=== PATIENT | female | born 1990 | race Caucasian/White ===

== ENCOUNTER → 2016-12-15 | Outpatient (CLI) | payer BC ==
[~2016-12-15] MED LIST: LBT100 PO; PRENTAB26 PO
[2016-12-15 16:49] LABS: HEMATOCRIT 30.6 % (37-47)
[2016-12-15 17:39] LABS: URINE APPEARANCE CLEAR (CLEAR); URINE BILIRUBIN NEG (NEG); URINE COLOR YELLOW; URINE EPITHELIAL CELL AUTO 20-30 /lpf (0-5); URINE NITRITE NEG (NEG); URINE SPECIFIC GRAVITY 1.007 (1.000-1.030); UROBILINOGEN NEG (NEG)
[2016-12-15 17:49] LABS: MANUAL MICROSCOPIC REQUIRED? NO; REVIEW REQ? NO
== END | disposition home or self-care (01) ==
LOC: C.LAB1850 15:42
PROVIDERS: ATTEND Obstetrics & Gynecology
DX: Z34.03 Encounter for supervision of normal first pregnancy, third trimester (principal)

== ENCOUNTER → 2017-02-09 | Outpatient (CLI) | payer BC | END | disposition home or self-care (01) | LOC: C.LABSPEC 17:43 | PROVIDERS: ATTEND Obstetrics & Gynecology | DX: Z34.03 Encounter for supervision of normal first pregnancy, third trimester (principal) ==

== ENCOUNTER 2017-02-17 17:07 | Inpatient (IN) | payer BC ==
[~2017-02-17] VITALS: Ht 167.6 cm; Wt 74.5 kg
[~2017-02-17 17:07] MED LIST changes: -LBT100 PO
[2017-02-17 17:44] VITALS: Ht 167.6 cm; Wt 74.5 kg
[2017-02-17 18:51] LABS: BASO % 0.2 %; BASO ABS # 0.02 K/uL (0-0.2); EOS % 0.4 %; HEMATOCRIT 33.9 % (37-47); IG% 0.9 %; LYMPH % 14.3 %; LYMPH ABS # 1.61 K/uL (1.2-3.4); MEAN CELL VOLUME 87.4 fL (80-100); MEAN CORPUSCULAR HEMOGLOBIN 29.6 pg (25-34); MEAN PLATELET VOLUME 10.2 fL (7.4-10.4); MONO % 7.8 %; NEUT % 76.4 %; PLATELET COUNT 253 K/uL (130-400); RED BLOOD COUNT 3.88 M/uL (4.2-5.4); WHITE BLOOD COUNT 11.25 K/uL (4.8-10.8)
[2017-02-17 19:00] LABS: INR 0.9 (0.9-1.1); PROTHROMBIN TIME (PATIENT) 9.2 SECONDS (9.0-12.0)
[2017-02-17 19:02] LABS: COMPLETE YES; MEAN CORPUSCULAR HGB CONC 33.9 g/dl (32-36)
[2017-02-17 19:33] LABS: CREATININE 0.7 mg/dl (0.60-1.20); URIC ACID 5.8 mg/dl (2.6-7.2)
[2017-02-17 20:05] LABS: URINE PROTIEN/CREAT RATIO 0.1 (0-0.2); URINE TOTAL PROTEIN 5.5 mg/dl (0-11.9)
[2017-02-17] MEDS ORDERED: LACTATED RINGER'S 1000ML 1,000 ML IV PRN (20:52)
[2017-02-17] MEDS ORDERED: PENICILLIN G POTASSIUM IV 6 MU in DEXTROSE 5% 250ML 250 ML IV ONE (21:00)
[2017-02-17] MEDS ORDERED: IV FLUIDS COMPLETED PRN (21:15)
[2017-02-17] MEDS: LACTATED RINGER'S 1000ML 1,000 ML IV SCH (21:22)
[2017-02-18] MEDS: PENICILLIN G POTASSIUM IV 3 MU in DEXTROSE 5% 100ML 100 ML IV PRN ×4 (01:41→14:16)
[2017-02-18] MEDS ORDERED: LACTATED RINGER'S 1000ML 500 ML IV PRN ×2 (05:18→13:21)
[2017-02-18] MEDS ORDERED: OXYTOCIN 30 UNITS/500ML NSS IV PRN ×2 (05:30→16:30)
[2017-02-18] MEDS: LACTATED RINGER'S 1000ML 1,000 ML IV SCH ×2 (11:25→13:03)
[2017-02-18] MEDS ORDERED: EpHEDrine SULFATE INJ 50 MG/ML AMP ONE (11:53)
[2017-02-18] MEDS ORDERED: BUPIVACAINE 0.25% 30 ML VIAL ONE (11:53)
[2017-02-18] MEDS ORDERED: FENTANYL CITRATE INJ 50 MCG/1 ML 2 ML VIAL ONE (11:54)
[2017-02-18] MEDS ORDERED: FENTANYL 2MCG/ML ROPIV 1.25MG/ML 100ML BAG EPI ONE (11:54)
[2017-02-18] MEDS ORDERED: NALOXONE HCL INJ 1 MG in SODIUM CHLORIDE 0.9% 1000ML 1,000 ML IV PRN (13:21)
[2017-02-18] MEDS ORDERED: EpHEDrine SULFATE INJ 50 MG/ML AMP IV PRN (13:30)
[2017-02-18] MEDS ORDERED: NALBUPHINE HCL INJ 10 MG/ML AMP IV PRN (13:30)
[2017-02-18] MEDS ORDERED: FENTANYL 2MCG/ML ROPIV 1.25MG/ML 100ML BAG EPI PRN (13:30)
[2017-02-18] MEDS ORDERED: NALOXONE HCL INJ 0.4 MG/1 ML VIAL/CARP IV PRN (13:30)
[2017-02-18] MEDS ORDERED: DiphenhydrAMINE HCL 50 MG/ML VIAL IV PRN (13:30)
[2017-02-18] MEDS ORDERED: BENZOCAINE 20% AER SPR 82.5 GM CAN EXT PRN (16:30)
[2017-02-18] MEDS ORDERED: HYDROCORTISONE ACETATE 25 MG SUPP PR PRN (16:30)
[2017-02-18] MEDS ORDERED: SUPERCREAM 0.870 % 15GM JAR EXT PRN (16:30)
[2017-02-18] MEDS ORDERED: ACETAMINOPHEN/CODEINE 300/30MG TAB PO PRN ×2 (16:30)
[2017-02-18] MEDS ORDERED: LANOLIN OINT EXT PRN ×2 (16:30)
--- NOTE | 2017-02-18 17:08 | DELIVERY SUMMARY ---
DATE OF OPERATION: 02/18/2017 SURGEON: Dr. Mccracken. PRE-DELIVERY DIAGNOSES: 1. 26-year-old -0-1-0 at 37 weeks 2 days. 2. Induction of labor secondary to gestational hypertension. 3. GDMA1. 4. Group B strep positive. 5. History of miscarriage. 6. Zika exposure with negative laboratory testing. POST-DELIVERY DIAGNOSES: Same plus third degree perineal laceration. PROCEDURE: Spontaneous vaginal delivery with repair of third degree perineal laceration. ESTIMATED BLOOD LOSS: 300 mL. FINDINGS: Viable male with Apgars 8 and 9. Weight pending. Please see nursing records. DESCRIPTION OF PROCEDURE: The patient progressed to complete with epidural anesthesia. She then began to push and spontaneously vaginally delivered a viable male from the left occiput anterior position. The head delivered followed by the anterior shoulder followed by the posterior shoulder followed by the body, no nuchal cord was noted. A spontaneous cry was heard. The cord was doubly clamped and cut and the baby was handed off to the waiting pediatrics team per maternal request. The placenta was then delivered spontaneously intact with a 3-vessel cord. Pitocin was given. The uterus became firm. The uterus, vagina and cervix were swept of all clots and debris. The cervix, vagina and perineum were inspected for lacerations and a third degree perineal laceration was noted. Rectal exam was performed to ensure no fourth degree tear. The anal sphincter muscle was not entirely lacerated, approximately 50% of the muscle was torn. Three [id number] sutures of 3-0 Chromic on an SH needle were used to reapproximate the muscle capsule of the anal sphincter. Then the second degree perineal laceration was repaired in standard fashion using 3-0 Vicryl. At the conclusion of the repair a rectal exam was performed to ensure no stitches in the rectum. Excellent hemostasis was observed. The patient and baby tolerated the delivery well and are recovering in the room. I attest to the content of the Intraoperative Record and any orders documented therein. Any exceptio ns are noted below.
--- NOTE | 2017-02-18 17:28 | Anesthesia Procedure Note ---
Anesthesia Epidural Removal Nt Date & Time Feb 18, 2017 at 17:28 Notes Mental Status: alert / awake / arousable, participated in evaluation Nausea / Vomiting: adequately controlled Pain: adequately controlled Airway Patency, RR, SpO2: stable & adequate BP & HR: stable & adequate Hydration State: stable & adequate Neuraxial Anesthesia: was administered, sensory block is resolving Anesthetic Complications: no major complications apparent, pt satisfied with anesthetic care Epidural: removed without complications, with tip intact
[2017-02-18 19:40] VITALS: BP 136/88; PULSE 79; TEMP 36.9
[2017-02-18] MEDS: DOCUSATE SODIUM 100 MG CAP PO SCH (20:20)
[2017-02-18] MEDS: IBUPROFEN 600 MG TAB PO PRN (20:52)
[2017-02-19] VITALS: BP 147/81; PULSE 74; TEMP 36.8
[2017-02-19] MEDS: IBUPROFEN 600 MG TAB PO PRN ×4 (00:24→20:22)
[2017-02-19 04:40] VITALS: BP 143/89; PULSE 75; TEMP 36.5
[2017-02-19 06:53] LABS: HEMATOCRIT 30.5 % (37-47)
[2017-02-19 07:45] VITALS: BP 143/98; PULSE 70; TEMP 36.5; O2SAT 99
--- NOTE | 2017-02-19 07:53 | Progress Note ---
Subjective Feb 19, 2017. Subjective conversation w/ patient, physical exam Ambulation: ambulating normally Voiding: no voiding problems Passing Gas: Yes Diet Tolerance: Regular Diet Lochia: Moderate Feeding Type: Breast Feeding Pain: controlled Review of Systems Constitutional: No problem reported Respiratory: No problem reported Cardiac: No problem reported Breast: No problem reported Abdomen: No problem reported Female : No problem reported Objective Vital Signs Date Time Temp Pulse Resp B/P Pulse Ox O2 Delivery O2 Flow Rate FiO2 02/19/17 04:40 36.5 75 20 143/89 Room Air 02/19/17 00:00 Room Air 02/19/17 00:00 36.8 74 20 147/81 Room Air 02/18/17 19:40 36.9 79 20 136/88 Room Air Physical Exam General Appearance: WELL-APPEARING, NO APPARENT DISTRESS Respiratory/Chest: no respiratory distress Cardiovascular: regular rate, rhythm Abdomen: non tender, soft Fundus: Firm Extremities: normal range of motion, normal inspection Laboratory Results Last 24 Hours Test 02/18/17 20:03 02/19/17 06:34 Hepatitis B Surface Antigen NEG Hepatitis C Antibody NEG HIV (1&2) Ab and P24 Ag, 4th Gener NEG Hemoglobin 10.5 g/dL Hematocrit 30.5 % Assessment and Plan Problem List Medical Problems: (1) Ovarian cyst Status: Acute (2) Vaginal bleeding in Status: Acute Post- Day#: 1 Continue Routine Care: PPD#1 Feeling well. gHTN - BPs 140s/80s GBS+ 3rd degree laceration, repaired. Stool softeners. Anticipate discharge home tomorrow.
[2017-02-19] MEDS: DOCUSATE SODIUM 100 MG CAP PO SCH ×2 (08:29→20:21)
[2017-02-19 11:45] VITALS: BP 134/93; PULSE 76; TEMP 36.5; O2SAT 100
[2017-02-19 16:00] VITALS: BP 145/91; PULSE 89; TEMP 36.8
[2017-02-19] MEDS ORDERED: BISACODYL 5 MG TABEC PO SCH (20:00)
[2017-02-19 23:10] VITALS: BP 148/92; PULSE 78; TEMP 36.5
[2017-02-20] MEDS: DOCUSATE SODIUM 100 MG CAP PO SCH (07:36)
[2017-02-20 08:00] VITALS: BP_SYST 160; BP_SYST 167; BP_SYST 173; BP_DIAS 100; BP_DIAS 103; BP_DIAS 99; PULSE 75; TEMP 36.6; O2SAT 100
--- NOTE | 2017-02-20 08:11 | Progress Note ---
Subjective Feb 20, 2017. Subjective conversation w/ patient, physical exam Ambulation: ambulating normally Voiding: no voiding problems Passing Gas: Yes Diet Tolerance: Regular Diet Feeding Type: Breast Feeding Review of Systems Constitutional: No chills, No fever, No sweats Respiratory: No cough, No shortness of breath Cardiac: No chest pain, No claudication Objective Vital Signs Date Time Temp Pulse Resp B/P Pulse Ox O2 Delivery O2 Flow Rate FiO2 02/19/17 23:10 Room Air 02/19/17 23:10 36.5 78 20 148/92 Room Air 02/19/17 16:00 36.8 89 16 145/91 Room Air 02/19/17 16:00 Room Air 02/19/17 11:45 36.5 76 18 134/93 100 Room Air Physical Exam General Appearance: WELL-APPEARING, NO APPARENT DISTRESS Respiratory/Chest: lungs clear, no accessory muscle use Cardiovascular: regular rate, rhythm, no murmur Fundus: Firm, Non-Tender, Relation to Umbilicus (2 cm below) Extremities: non-tender, no calf tenderness Assessment and Plan Problem List Medical Problems: (1) Ovarian cyst Status: Acute (2) Vaginal bleeding in Status: Acute Post- Day#: 2 Continue Routine Care: s/p Day 2 - vitals reviewed blood pressure in 140's/90's range and 160-170's/90 on repeat testing. Will start on labetalol 100mg bid. will follow up in clinic on - Hgb 10.5 yesterday - blood: A+, Rubella immune, GBS positive - encourage ambulation, encourage , monitor lochia - patient doing well clinically - patient counselled on discharge instructions - PATIENT TO BE DISCHARGED HOME TODAY Resident Physician Supervision Note: I interviewed and examined the patient. Discussed with Dr. Carver and agree with findings and plan as documented in the note. Any exceptions or clarifications are listed here: After seeing the patient nursing noted that her pressures were elevated in 160-170/90. Will start labetolol. Will monitor pressures through the afternoon. If all looks well, will d/c with labetolol 100mg bid. f/u in the office on . s/s of pet reviewed and to call with any concerns. Documented By: Zohra Ortega
[2017-02-20] MEDS ORDERED: LBT100 PO (08:28)
[2017-02-20] MEDS ORDERED: LABETALOL HCL 100 MG TAB PO ONE (08:30)
--- NOTE | 2017-02-20 08:31 | Discharge Instructions ---
Discharge Instructions Date of Service Feb 20, 2017. Admission Reason for Admission: Blood Pressure Monitoring Discharge Discharge Diagnosis / Problem: Spontaneous Vaginal delivery Discharge Goals Goal(s): Routine recovery after delivery Medications Continue Dispensed Medications: supercream, dermaplast, tucks, lansinoh Activity Recommendations Activity Limitations: per Instructions/Follow-up section . Instructions / Follow-Up Instructions / Follow-Up ACTIVITY RECOMMENDATIONS: * Gradual return to full activity over the next 2-3 weeks. * No lifting - nothing heavier than baby over the next 2-3 weeks. * Do not engage in vigorous exercise, sexual activity or sports until cleared by your physician. * Do not drive or operate any motorized equipment until cleared by your physician. * You may shower/bathe daily. MEDICATIONS: For discomfort or pain, you may use Acetaminophen (Tylenol), Ibuprofen (Advil), or Naproxen (Aleve) following the package directions. For constipation you may use Colace following the package directions. BREAST CARE: If you are not breast feeding: * Wear a supportive bra 24 hours a day for one to two weeks. * Avoid stimulating your breasts and nipples as much as possible during the first few weeks after delivery. * When taking a shower, have the warm water hit your back, not breasts. * When your breasts feel full, apply ice packs. Usually three to four times a day helps ease the discomfort. * Take a mild pain medication (Tylenol / Motrin) when you are uncomfortable. If breast feeding: * Use breast milk to lubricate nipples. Lansinoh cream may be used for sore nipples. You do not need to remove cream prior to breast feeding. If using a different brand of cream, check the label for directions regarding removal of cream prior to nursing. * Wear a supportive bra. * If having problems with breasts or breast feeding, call a showroom sales consultant or your health care provider. EPISIOTOMY CARE: After delivery, if you have an episiotomy (stitches), the following steps will ease discomfort and aid healing. * For the first 24 hours after delivery, place ice packs next to your episiotomy to help reduce swelling. * After the first 24 hour-period, sitz baths, either portable or in the tub, are suggested. A shower with a shower arm sprayed over the episiotomy may be comforting. * Elizabeth care should be done after each voiding and bowel movement. Squirt warm water from a plastic bottle over the perineum (region of the body between the anus and urinary opening) and pat dry. * Use Dermoplast to ease discomfort. Shake container. [place] directly over the episiotomy. Place a Tucks on a clean sanitary pad next to your episiotomy. SPECIAL CARE INSTRUCTIONS: When you are discharged from the hospital, it is important for you to follow the instructions listed below: * During the first week at home, you should be able to care for yourself and your baby. In addition, the usual light household activities are encouraged. * Limit your activities to the way you feel. Do not try to clean the house or move furniture. Be sensible. * If you actively engage in sports and have done so up until the time of your delivery, you may resume these activities as soon as you feel able. This may take up to one month or even longer. Use good judgment. * Continue to take your vitamins for at least six weeks after the of your baby. * Your diet need not be limited unless you were on a special diet before your delivery. Breast-feeding mothers need around 2500 calories per day and at least 64-80 ounces of fluid per day (8 to 10 glasses). * You should eat foods from the four major food groups. Crash diets or fad diets are to be avoided. Eating lean meats, fresh fruits and vegetables, low-fat dairy products, high fiber foods and a regular exercise program, will help you get back to your pre- weight without putting your health at risk. * Constipation is sometimes a problem after delivery. Take a mild laxative as needed. If breast feeding, Milk of Magnesia is acceptable to use. You may use a suppository or Fleets enema if no episiotomy. * A daily shower or tub bath is suggested. Be sure to thoroughly and gently dry the perineum. * A bloody vaginal discharge will usually continue until around four weeks post . A small amount of bleeding may continue for as long as six weeks. Vaginal discharge changes from the bright red bleeding after delivery to pink then brownish and finally yellowish-pink before becoming white and disappearing. * Bleeding may increase with activity. Your first period may come in 4-8 weeks. If you are breast feeding, your period may be delayed even longer. * [place] (sex) can begin whenever both you and your partner feel comfortable and do not have any form of genital infection. It is recommended that you wait at least six weeks for internal and external healing to occur. If you have questions, please talk to your health care practitioner. A condom should be used to prevent infection and . * Foreplay, gentle intercourse and lubrication is very important the first several times to prevent pain. A water-based lubricant such as K-Y jelly or Astroglide may be used. * If you have RH negative blood and your baby is RH positive, you will receive RHOGAM by injection prior to discharge. The nurse will give you a card to keep with you that has the date and place that you received RHOGAM after delivery. * During your care, you had a Rubella screen done to check for the presence of rubella antibodies in your blood. If your test was negative, you will receive a Rubella vaccine prior to discharge. This vaccine may cause a fever, soreness at the injection site and flu-like symptoms. If these symptoms persist, notify your health care practitioner. is not advised for one month after a Rubella vaccine. * Verbalizes understanding of car seat law as reviewed with patient nursing. * Car Seat hand-out given and reviewed with patient by nursing. * Shaken baby information reviewed with patient by nursing. Call you doctor if: * Heavy bleeding (saturating several pads an hour) or passing clots the size of your fist. * A fever >101 degrees F (38.3 degrees C) on two occasions four hours apart and /or chills. * Unusual pain in the pelvic or vaginal areas. * "Baby Blues" lasting longer than two weeks. If you have any questions or concerns, call your health care practitioner at . FOLLOW UP VISIT: * Please call the office at to schedule a 6 week examination. It is important you keep this appointment. It is important for you to make arrangements for either yearly or twice yearly check-ups thereafter. Current Hospital Diet Patient's current hospital diet: Regular OB Diet Discharge Diet Recommended Diet: Regular Diet Pending Studies Studies pending at discharge: no Medical Emergencies . Who to Call and When: Medical Emergencies: If at any time you feel your situation is an emergency, please call 911 immediately. . Non-Emergent Contact Non-Emergency issues call your: Primary Care Provider, Smoking Tobacco Packing Machine Hand . . "Provider Documentation" section prepared by Geoff Carver. VTE Core Measure Inpt VTE Proph given/why not?: Treatment not indicated
[2017-02-20 10:15] VITALS: BP_DIAS 100; PULSE 75; TEMP 36.6
[2017-02-20] MEDS ORDERED: LABETALOL HCL 100 MG TAB PO SCH (20:00)
== END 2017-02-20 10:30 | disposition home or self-care (01) | DRG 775 ==
LOC: C.OPB 17:07 → C.LD 17:07 → C.OPB 18:25 → C.LD 18:25 → OBSVTOIN 20:53 → C.OBG 02-18 20:38
PROVIDERS: ADMIT Obstetrics & Gynecology; ATTEND Obstetrics & Gynecology
PROC: 10E0XZZ Delivery of Products of Conception, External Approach (ICD-10-PCS; principal; 2017-02-18)
PROC: 0DQR0ZZ Repair Anal Sphincter, Open Approach (ICD-10-PCS; principal; 2017-02-18)
PROC: 0U7C7ZZ Dilation of Cervix, Via Natural or Artificial Opening (ICD-10-PCS; principal; 2017-02-18)
DX: O13.4 Gestational [pregnancy-induced] hypertension without significant proteinuria, complicating childbirth (principal); O70.21 Third degree perineal laceration during delivery, IIIa; O99.824 Streptococcus B carrier state complicating childbirth; O24.420 Gestational diabetes mellitus in childbirth, diet controlled; Z37.0 Single live birth; Z3A.37 37 weeks gestation of pregnancy

== ENCOUNTER → 2017-02-23 | Outpatient (CLI) | payer BC ==
[~2017-02-23] MED LIST changes: +LBT100 PO
[2017-02-23 11:26] LABS: HEMATOCRIT 33.4 % (37-47); MEAN CELL VOLUME 88.4 fL (80-100); MEAN CORPUSCULAR HEMOGLOBIN 29.4 pg (25-34); MEAN PLATELET VOLUME 9.3 fL (7.4-10.4); PLATELET COUNT 274 K/uL (130-400); RED BLOOD COUNT 3.78 M/uL (4.2-5.4); WHITE BLOOD COUNT 13.58 K/uL (4.8-10.8)
[2017-02-23 11:29] LABS: MEAN CORPUSCULAR HGB CONC 33.2 g/dl (32-36)
[2017-02-23 11:51] LABS: ALB/GLOB RATIO 0.9 (0.9-2); ALKALINE PHOSPHATASE 106 U/L (45-117); ALT/SGPT 54 U/L (12-78); AST/SGOT 35 U/L (15-37); BLOOD UREA NITROGEN 13 mg/dl (7-18); BUN/CREATININE RATIO 14.4 (10-20); CALCIUM 8.7 mg/dl (8.5-10.1); CARBON DIOXIDE 25 mmol/L (21-32); CHLORIDE 106 mmol/L (98-107); CREATININE 0.91 mg/dl (0.60-1.20); GLUCOSE 124 mg/dl (70-99); POTASSIUM 4.1 mmol/L (3.5-5.1); SODIUM 140 mmol/L (136-145)
== END | disposition home or self-care (01) ==
LOC: C.LAB1850 11:08
PROVIDERS: ATTEND Obstetrics & Gynecology
DX: O13.9 Gestational [pregnancy-induced] hypertension without significant proteinuria, unspecified trimester (principal)